=== PATIENT | female | born 2000 | race Caucasian/White ===

== ENCOUNTER 2019-05-10 04:30 | Inpatient (IN) | payer BC ==
[~2019-05-10] VITALS: Ht 152.4 cm; Wt 95.2 kg
--- NOTE | 2019-05-10 04:52 | NUR ---
PT AMBULATES TO ROOM FROM TRIAGE WITH STEADY GAIT. PT INSTRUCTED TO CHANGE INTO GOWN AND PROVIDED WITH UA CUP. AWAITING ERP AT THIS TIME.
[2019-05-10] MEDS ORDERED: ACETAMINOPHEN 500 MG TABLET ONE (05:11)
[2019-05-10] MEDS ORDERED: ONDANSETRON 2MG/ML, 2ML ONE (05:16)
[2019-05-10] MEDS ORDERED: MORPHINE SULFATE 4 MG/ML, 1ML ONE ×2 (05:16→07:30)
[2019-05-10] MEDS ORDERED: SODIUM CHLORIDE FLUSH 10ML SYR IVF ONE (05:30)
[2019-05-10] MEDS ORDERED: ACETAMINOPHEN 500 MG TABLET PO ONE (05:30)
[2019-05-10] MEDS ORDERED: ONDANSETRON 2MG/ML, 2ML IVPush ONE (05:30)
[2019-05-10 05:43] LABS: HCG UR SG 1.033 (1.003-1.030)
--- NOTE | 2019-05-10 05:44 | NUR ---
PT BLOOD COLLECTED AND TUBED TO LAB. IV ACCESS ESTABLISHED AND PT MEDICATED AT THIS TIME PER MAR. PT HAS CALL LIGHT WITHIN REACH.
[2019-05-10] MEDS: MORPHINE SULFATE 4 MG/ML, 1ML IVPush PRN ×2 (05:46→07:34)
[2019-05-10 05:49] LABS: CULTURE INDICATED? YES; MICROSCOPIC INDICATED
[2019-05-10 06:09] LABS: MEAN CORPUSCULAR HEMOGLOBIN 31.6 pg (27.0-34.8); MEAN CORPUSCULAR HGB CONC 33.7 g/dL (32.4-35.8); MEAN PLATELET VOLUME 8.9 fL (7.4-10.4); PLATELET COUNT 373 x10^3/uL (130-400); RED BLOOD COUNT 4.42 x10^6/uL (3.82-5.3); RED CELL DISTRIBUTION WIDTH 12.8 % (9.6-15.2)
[2019-05-10 06:10] LABS: ALANINE AMINOTRANSFERASE 40 U/L (12-78); ALBUMIN 3.9 g/dL (3.4-5.0); ANION GAP 6 mmol/L (5-15); CALCIUM 9.1 mg/dL (8.5-10.1); CHLORIDE 106 mmol/L (98-107); CREATININE 0.84 mg/dL (0.55-1.02)
[2019-05-10 06:13] LABS: ALKALINE PHOSPHATASE 90 U/L (45-117); BILIRUBIN,TOTAL 1.2 mg/dL (0.2-1.0); TOTAL PROTEIN 8.2 g/dL (6.4-8.2)
--- NOTE | 2019-05-10 06:27 | NUR ---
PT TO CT VIA [facility] AT THIS TIME.
[2019-05-10 06:28] LABS: RAPID INFLUENZA A Negative (Negative); RAPID INFLUENZA B Negative (Negative)
[2019-05-10] MEDS ORDERED: SODIUM CHLORIDE 0.9% 1,000ML IVBOLUS ONE (06:30)
[2019-05-10] MEDS ORDERED: OMNIPAQUE 350 MG/ML, 100ML BOTTLE ONE (06:33)
--- NOTE | 2019-05-10 06:48 | NUR ---
Received report from ALVERTO Castano. All questions answered. Assuming care of pt at this time.
[2019-05-10 07:01] LABS: BASOPHILS # (AUTO) 0.01 x10^3/uL (0-0.3); BASOPHILS % (AUTO) 0 % (0-1); EOSINOPHILS % (AUTO) 0 % (1-7); LYMPHOCYTES % (AUTO) 4 % (22-44); MD SCAN; MONOCYTES # (AUTO) 0.68 x10^3/uL (0-1.4); MONOCYTES % (AUTO) 3 % (2-9); NEUTROPHILS # (AUTO) 22.51 x10^3/uL (1.8-8.0); NEUTROPHILS % (AUTO) 93 % (42-75)
--- NOTE | 2019-05-10 07:04 | NUR ---
Pt resting on gurney connected to pulse ox monitor. Lab at bedside. Pt denies pain at this time. PIV fluids infuising per EMAR. Pt has call light within reach and bedrail up x 1. NADN. No needs expressed at this time.
--- NOTE | 2019-05-10 07:42 | NUR ---
Pt transported on gurney to ultrasound.
[2019-05-10] MEDS ORDERED: KETOROLAC 30 MG/1 ML IVPush ONE (08:00)
--- NOTE | 2019-05-10 08:41 | NUR ---
Pt remains away from ED room on [facility] at .
--- NOTE | 2019-05-10 09:10 | NUR ---
, Pt's mom, called and left contact number in case of emergency.
[2019-05-10] MEDS ORDERED: CEFTRIAXONE PMX 1GM/50ML 50 ML ONE (09:28)
[2019-05-10] MEDS ORDERED: CEFTRIAXONE PMX 1GM/50ML 50 ML IV ONE (09:30)
--- NOTE | 2019-05-10 09:38 | NUR ---
Provided medications per EMAR. NADN. No needs expressed at this time. Pt resting on gurney connected to NIBP cuff and continous pulse ox monitor. Call light within reach.
[2019-05-10] MEDS ORDERED: hydrALAzine 20 MG/ML, 1ML IVPush PRN (10:30)
[2019-05-10] MEDS ORDERED: ONDANSETRON 2MG/ML, 2ML IVPush PRN (10:30)
[2019-05-10] MEDS ORDERED: TRAZODONE 50MG TABLET PO PRN (10:30)
[2019-05-10] MEDS ORDERED: IBUPROFEN 600 MG TABLET PO PRN (10:30)
[2019-05-10] MEDS ORDERED: ONDANSETRON ODT 4 MG PO PRN (10:30)
[2019-05-10] MEDS ORDERED: ASA/APAP/ CAFFEINE TABLET PO PRN (10:30)
[2019-05-10] MEDS ORDERED: POLYETHYLENE GLYCOL 17 GM PACKET PO PRN (10:30)
--- NOTE | 2019-05-10 10:34 | NUR ---
Provided report to ALVERTO RAMIREZ. All questions answered. Pt ready to transfer to floor from ED. NADN. No other needs expressed.
[2019-05-10 11:20] VITALS: BP 130/78
[2019-05-10] MEDS: POTASSIUM CHLORIDE 20 MEQ in LACTATED RINGERS 1,000 ML IV SCH (11:48)
[2019-05-10] MEDS: KETOROLAC 30 MG/1 ML IV PRN ×2 (11:49→17:52)
[2019-05-10] MEDS: GUAIFENESIN/DM 200-20MG, 10ML UDC PO PRN ×2 (11:54→17:58)
[2019-05-10] MEDS: ACETAMINOPHEN 325 MG TABLET PO PRN ×2 (11:54→17:58)
[2019-05-10 12:00] VITALS: BP 130/78
[2019-05-10] MEDS: PIPERACILLIN/TAZO/PMX 3.375GM 50 ML IV SCH ×3 (12:24→23:38)
[2019-05-10 12:36] VITALS: BP 104/64
[2019-05-10] MEDS ORDERED: MAGNESIUM SULFATE PMX 2GM/50ML 50 ML IV ONE (14:00)
[2019-05-10] MEDS: ASCORBIC ACID 500 MG TABLET PO SCH (16:44)
[2019-05-10] MEDS: CHOLECALCIFEROL 400 UNITS/ML ORAL SOL PO SCH (16:45)
[2019-05-10 18:43] VITALS: BP 119/73
[2019-05-11] MEDS: GUAIFENESIN/DM 200-20MG, 10ML UDC PO PRN ×2 (00:33→07:50)
[2019-05-11] MEDS: KETOROLAC 30 MG/1 ML IV PRN ×3 (00:33→18:07)
[2019-05-11] MEDS: ACETAMINOPHEN 325 MG TABLET PO PRN ×2 (00:34→12:43)
[2019-05-11 01:32] VITALS: BP 122/78
[2019-05-11] MEDS: POTASSIUM CHLORIDE 20 MEQ in LACTATED RINGERS 1,000 ML IV SCH (02:20)
[2019-05-11] MEDS: PIPERACILLIN/TAZO/PMX 3.375GM 50 ML IV SCH (05:55)
[2019-05-11 06:07] LABS: MEAN CORPUSCULAR HEMOGLOBIN 31.8 pg (27.0-34.8); MEAN CORPUSCULAR HGB CONC 33.3 g/dL (32.4-35.8); MEAN CORPUSCULAR VOLUME 95.3 fL (80-100); MEAN PLATELET VOLUME 8.4 fL (7.4-10.4); PLATELET COUNT 324 x10^3/uL (130-400); RED CELL DISTRIBUTION WIDTH 12.9 % (9.6-15.2)
[2019-05-11 06:22] LABS: ANION GAP 5 mmol/L (5-15); CALCIUM 8.9 mg/dL (8.5-10.1); CHLORIDE 108 mmol/L (98-107)
[2019-05-11 06:24] LABS: CREATININE 0.77 mg/dL (0.55-1.02)
[2019-05-11 06:52] LABS: MD YES
[2019-05-11 06:57] LABS: <PLATELET ESTIMATE> ADEQUATE; <PLT MORPHOLOGY> NORMAL PLT MORPH; <RBC MORPHOLOGY> NORMAL; BAND#(MANUAL) 0.83 x10^3/uL; BANDS%(MANUAL) 4 % (0-7); LYMPH#(MANUAL) 2.07 x10^3/uL (1-6.1); LYMPHS% (MANUAL) 10 % (22-44); MONOS#(MANUAL) 1.04 x10^3/uL (0.3-2.7); MONOS% (MANUAL) 5 % (2-9); SEG#(MANUAL) 16.77 x10^3/uL (1.8-8); SEGS% (MANUAL) 81 % (42-75)
[2019-05-11 07:05] LABS: BASOPHILS # (AUTO) 0.04 x10^3/uL (0-0.3); BASOPHILS % (AUTO) 0 % (0-1); EOSINOPHILS # (AUTO) 0.01 x10^3/uL (0-0.8); EOSINOPHILS % (AUTO) 0 % (1-7); LYMPHOCYTES # (AUTO) 1.49 x10^3/uL (1-6.1); LYMPHOCYTES % (AUTO) 7 % (22-44); MONOCYTES # (AUTO) 1.08 x10^3/uL (0-1.4); MONOCYTES % (AUTO) 5 % (2-9); NEUTROPHILS # (AUTO) 18.12 x10^3/uL (1.8-8.0); NEUTROPHILS % (AUTO) 87 % (42-75)
[2019-05-11 07:39] VITALS: BP 114/77
[2019-05-11] MEDS: ASCORBIC ACID 500 MG TABLET PO SCH ×2 (07:50→11:30)
[2019-05-11] MEDS: MULTIVITS,STRESS FORMULA 1 TABLET PO SCH (07:50)
[2019-05-11] MEDS: ENOXAPARIN 40 MG/0.4 ML SQ SCH (10:00)
[2019-05-11] MEDS: CEFTRIAXONE PMX 2GM/50ML 50 ML IV SCH (10:02)
[2019-05-11 12:34] VITALS: BP 121/77
[2019-05-11] MEDS: CHOLECALCIFEROL 400 UNITS/ML ORAL SOL PO SCH (16:30)
[2019-05-11 18:50] VITALS: BP 114/80
[2019-05-12] MEDS: KETOROLAC 30 MG/1 ML IV PRN (01:02)
[2019-05-12 01:08] VITALS: BP 113/77
[2019-05-12 05:37] LABS: BASOPHILS # (AUTO) 0.08 x10^3/uL (0-0.3); BASOPHILS % (AUTO) 1 % (0-1); EOSINOPHILS # (AUTO) 0.08 x10^3/uL (0-0.8); EOSINOPHILS % (AUTO) 1 % (1-7); LYMPHOCYTES # (AUTO) 2.14 x10^3/uL (1-6.1); LYMPHOCYTES % (AUTO) 14 % (22-44); MD NO; MEAN CORPUSCULAR HEMOGLOBIN 31.7 pg (27.0-34.8); MEAN CORPUSCULAR HGB CONC 33.1 g/dL (32.4-35.8); MEAN CORPUSCULAR VOLUME 95.7 fL (80-100); MEAN PLATELET VOLUME 8.6 fL (7.4-10.4); MONOCYTES # (AUTO) 1.33 x10^3/uL (0-1.4); MONOCYTES % (AUTO) 9 % (2-9); NEUTROPHILS % (AUTO) 76 % (42-75); PLATELET COUNT 324 x10^3/uL (130-400); RED CELL DISTRIBUTION WIDTH 12.7 % (9.6-15.2)
[2019-05-12 05:46] LABS: CHLORIDE 110 mmol/L (98-107)
[2019-05-12 05:52] LABS: ALANINE AMINOTRANSFERASE 28 U/L (12-78); ALBUMIN 3.1 g/dL (3.4-5.0); ALKALINE PHOSPHATASE 83 U/L (45-117); ANION GAP 6 mmol/L (5-15); BILIRUBIN,TOTAL 0.4 mg/dL (0.2-1.0); CALCIUM 8.9 mg/dL (8.5-10.1); CREATININE 0.53 mg/dL (0.55-1.02); TOTAL PROTEIN 7.3 g/dL (6.4-8.2)
[2019-05-12 06:16] VITALS: BP 114/77
[2019-05-12] MEDS: ENOXAPARIN 40 MG/0.4 ML SQ SCH (09:14)
[2019-05-12] MEDS: MULTIVITS,STRESS FORMULA 1 TABLET PO SCH (09:14)
[2019-05-12] MEDS: ASCORBIC ACID 500 MG TABLET PO SCH (09:21)
[2019-05-12] MEDS: CEFTRIAXONE PMX 2GM/50ML 50 ML IV SCH (11:02)
[2019-05-12 13:14] VITALS: BP 117/79
[2019-05-12] MEDS ORDERED: DEXAMETHASONE 4 MG/ML, 1ML ONE ×2 (13:22→13:41)
[2019-05-12] MEDS: DEXAMETHASONE 4 MG/ML, 1ML IVPush SCH (13:28)
[2019-05-12] MEDS ORDERED: DEXAMETHASONE 4 MG/ML, 5ML IVPush ONE (13:30)
[2019-05-12] MEDS: D5%-LACTATED RINGERS 1,000 ML IV SCH ×2 (13:30→17:54)
[2019-05-12] MEDS ORDERED: OMNIPAQUE 350 MG/ML, 100ML BOTTLE ONE (14:26)
[2019-05-12] MEDS: PIPERACILLIN/TAZO/PMX 3.375GM 50 ML IV SCH ×2 (16:43→21:21)
[2019-05-12] MEDS: CHOLECALCIFEROL 400 UNITS/ML ORAL SOL PO SCH (16:43)
[2019-05-12 18:35] VITALS: BP 128/83
[2019-05-13] MEDS: DEXAMETHASONE 4 MG/ML, 1ML IVPush SCH ×3 (00:58→12:09)
[2019-05-13 02:27] VITALS: BP 114/74
[2019-05-13] MEDS: PIPERACILLIN/TAZO/PMX 3.375GM 50 ML IV SCH ×2 (03:20→09:38)
[2019-05-13 06:29] LABS: BASOPHILS # (AUTO) 0.01 x10^3/uL (0-0.3); BASOPHILS % (AUTO) 0 % (0-1); EOSINOPHILS # (AUTO) 0.01 x10^3/uL (0-0.8); EOSINOPHILS % (AUTO) 0 % (1-7); LYMPHOCYTES # (AUTO) 1.11 x10^3/uL (1-6.1); LYMPHOCYTES % (AUTO) 10 % (22-44); MD NO; MEAN CORPUSCULAR HEMOGLOBIN 31.6 pg (27.0-34.8); MEAN CORPUSCULAR VOLUME 95.6 fL (80-100); MEAN PLATELET VOLUME 8.5 fL (7.4-10.4); MONOCYTES # (AUTO) 0.19 x10^3/uL (0-1.4); MONOCYTES % (AUTO) 2 % (2-9); NEUTROPHILS # (AUTO) 9.58 x10^3/uL (1.8-8.0); NEUTROPHILS % (AUTO) 88 % (42-75); PLATELET COUNT 420 x10^3/uL (130-400); RED BLOOD COUNT 4.42 x10^6/uL (3.82-5.3); RED CELL DISTRIBUTION WIDTH 12.5 % (9.6-15.2)
[2019-05-13 06:41] LABS: ALANINE AMINOTRANSFERASE 33 U/L (12-78); ALBUMIN 3.3 g/dL (3.4-5.0); ANION GAP 10 mmol/L (5-15); CALCIUM 9.9 mg/dL (8.5-10.1); CHLORIDE 110 mmol/L (98-107); CREATININE 0.63 mg/dL (0.55-1.02)
[2019-05-13 06:44] LABS: ALKALINE PHOSPHATASE 95 U/L (45-117); BILIRUBIN,TOTAL 0.5 mg/dL (0.2-1.0); TOTAL PROTEIN 8.3 g/dL (6.4-8.2)
[2019-05-13 08:00] VITALS: BP 120/72
[2019-05-13] MEDS: ASCORBIC ACID 500 MG TABLET PO SCH (09:38)
[2019-05-13] MEDS: MULTIVITS,STRESS FORMULA 1 TABLET PO SCH (09:47)
[2019-05-13] MEDS ORDERED: ERTAPENEM 1 GM in SODIUM CHLORIDE 0.9% 50 ML IV SCH (11:00)
[2019-05-13] MEDS ORDERED: CHOL400D16 PO (11:29)
[2019-05-13] MEDS ORDERED: DEXA4TAB66 PO (11:29)
[2019-05-13] MEDS ORDERED: ASCO500T6 PO (11:29)
[2019-05-13] MEDS ORDERED: AMOX1TAB64 PO (11:29)
[2019-05-13] MEDS: D5%-LACTATED RINGERS 1,000 ML IV SCH (12:00)
== END 2019-05-13 12:42 | disposition home or self-care (01) | DRG 872 ==
LOC: ED 10:05 → EDIP 10:10 → 3N 11:01
PROVIDERS: ADMIT Family Medicine; ATTEND Hospitalist
DX: A41.9 Sepsis, unspecified organism (principal); N10 Acute pyelonephritis; J36 Peritonsillar abscess; E86.0 Dehydration; E80.6 Other disorders of bilirubin metabolism; E83.42 Hypomagnesemia
CPT/HCPCS: 36415; 87400; 96374; 96375; 99285; J7121; 70491; 71046; 74177; 76830; 80048; 80053; 81001; 81025; 83605; 83690; 83735; 84100; 85025; 86803; 87040; 87081; 87086; 87389; 87491; 87591; 87880; G0378; J0696; J1100; J1335; J1885; J2405; J2543; J3480; Q9967; J2270; J3475; J7030; J7120

== ENCOUNTER 2019-05-30 13:43 | Emergency (ER) | payer BC ==
[~2019-05-30] VITALS: Ht 152.4 cm; Wt 95.3 kg
[~2019-05-30 13:43] MED LIST: AMOX1TAB64 PO; ASCO500T6 PO; CHOL400D16 PO; DEXA4TAB66 PO
[2019-05-30 13:45] VITALS: BP 135/78
[2019-05-30 14:23] LABS: BASOPHILS # (AUTO) 0.02 x10^3/uL (0-0.3); BASOPHILS % (AUTO) 0 % (0-1); EOSINOPHILS # (AUTO) 0.11 x10^3/uL (0-0.8); EOSINOPHILS % (AUTO) 1 % (1-7); LYMPHOCYTES # (AUTO) 1.95 x10^3/uL (1-6.1); LYMPHOCYTES % (AUTO) 17 % (22-44); MD NO; MEAN CORPUSCULAR HEMOGLOBIN 32.1 pg (27.0-34.8); MEAN CORPUSCULAR HGB CONC 33.2 g/dL (32.4-35.8); MEAN CORPUSCULAR VOLUME 96.9 fL (80-100); MEAN PLATELET VOLUME 8.8 fL (7.4-10.4); MONOCYTES # (AUTO) 0.42 x10^3/uL (0-1.4); MONOCYTES % (AUTO) 4 % (2-9); NEUTROPHILS % (AUTO) 79 % (42-75); PLATELET COUNT 468 x10^3/uL (130-400); RED BLOOD COUNT 4.34 x10^6/uL (3.82-5.3); RED CELL DISTRIBUTION WIDTH 13.9 % (9.6-15.2)
[2019-05-30 14:31] LABS: ALANINE AMINOTRANSFERASE 51 U/L (12-78); ALBUMIN 3.7 g/dL (3.4-5.0); ANION GAP 8 mmol/L (5-15); CALCIUM 9.1 mg/dL (8.5-10.1); CHLORIDE 111 mmol/L (98-107); CREATININE 0.67 mg/dL (0.55-1.02)
[2019-05-30 14:35] LABS: ALKALINE PHOSPHATASE 91 U/L (45-117); BILIRUBIN,TOTAL 0.6 mg/dL (0.2-1.0); TOTAL PROTEIN 7.7 g/dL (6.4-8.2)
[2019-05-30 14:43] LABS: MICROSCOPIC NOT IND
[2019-05-30 14:52] LABS: CLUE CELLS NONE SEEN (NONE SEEN); WET PREP WBCS FEW (FEW)
[2019-05-30 15:00] LABS: CULTURE INDICATED? NO
== END 2019-05-30 16:07 | disposition home or self-care (01) ==
LOC: ED 14:12
DX: R10.2 Pelvic and perineal pain (principal)
CPT/HCPCS: 36415; 74018; 76830; 80053; 81003; 84703; 85025; 87210; 87491; 87591; 87808; 99284

== ENCOUNTER 2020-02-19 10:34 | Emergency (ER) | payer BC ==
[~2020-02-19] VITALS: Ht 152.4 cm; Wt 98.0 kg
[~2020-02-19 10:34] MED LIST changes: -ASCO500T6 PO; +ASCO500T9 PO; -CHOL400D16 PO; +CHOL400D6 PO
[2020-02-19] MEDS ORDERED: SODIUM CHLORIDE FLUSH 10ML SYR IVF ONE (11:00)
[2020-02-19] MEDS ORDERED: SODIUM CHLORIDE 0.9% 1,000ML IVBOLUS ONE (11:00)
[2020-02-19] MEDS ORDERED: IBUPROFEN 200 MG TABLET ONE (11:05)
[2020-02-19] MEDS ORDERED: IBUPROFEN 200 MG TABLET PO ONE (11:30)
[2020-02-19 11:50] LABS: HCT (SEDRATE) 43.9 % (34.6-47.8)
[2020-02-19 11:53] LABS: BASOPHILS # (AUTO) 0.04 x10^3/uL (0-0.1); BASOPHILS % (AUTO) 1 % (0-1); EOSINOPHILS # (AUTO) 0.04 x10^3/uL (0-0.4); EOSINOPHILS % (AUTO) 0 % (1-7); LYMPHOCYTES # (AUTO) 1.65 x10^3/uL (1-3.4); LYMPHOCYTES % (AUTO) 20 % (22-44); MD NO; MEAN CORPUSCULAR HEMOGLOBIN 31.1 pg (27.0-34.8); MEAN CORPUSCULAR HGB CONC 33.5 g/dL (32.4-35.8); MEAN CORPUSCULAR VOLUME 92.8 fL (80-100); MEAN PLATELET VOLUME 8.4 fL (7.4-10.4); MONOCYTES # (AUTO) 0.91 x10^3/uL (0.2-0.8); MONOCYTES % (AUTO) 11 % (2-9); NEUTROPHILS # (AUTO) 5.52 x10^3/uL (1.8-6.8); NEUTROPHILS % (AUTO) 68 % (42-75); PLATELET COUNT 292 x10^3/uL (130-400); RED CELL DISTRIBUTION WIDTH 12.2 % (9.6-15.2)
[2020-02-19 12:02] LABS: ALBUMIN 3.7 g/dL (3.4-5.0); ANION GAP 6 mmol/L (5-15); CALCIUM 9.3 mg/dL (8.5-10.1); CHLORIDE 107 mmol/L (98-107)
[2020-02-19 12:07] LABS: ALANINE AMINOTRANSFERASE 80 U/L (12-78); ALKALINE PHOSPHATASE 118 U/L (45-117); BILIRUBIN,TOTAL 0.4 mg/dL (0.2-1.0); CREATININE 0.87 mg/dL (0.55-1.02); TOTAL PROTEIN 7.8 g/dL (6.4-8.2)
[2020-02-19 12:47] LABS: MICROSCOPIC INDICATED
[2020-02-19 13:40] VITALS: BP 114/58
== END 2020-02-19 13:43 | disposition home or self-care (01) ==
LOC: ED 11:49
DX: B27.90 Infectious mononucleosis, unspecified without complication (principal); J02.9 Acute pharyngitis, unspecified; R53.83 Other fatigue; R53.1 Weakness
CPT/HCPCS: 36415; 71045; 80053; 81001; 83605; 84703; 85025; 85651; 86308; 87040; 87086; 96360; 99284; J7030

== ENCOUNTER 2020-08-28 02:14 | Emergency (ER) | payer BC ==
[~2020-08-28] VITALS: Ht 152.4 cm; Wt 101.0 kg
[2020-08-28] MEDS ORDERED: SODIUM CHLORIDE FLUSH 10ML SYR IVF ONE (02:30)
[2020-08-28 03:07] LABS: MICROSCOPIC NOT IND
[2020-08-28 03:30] LABS: ALANINE AMINOTRANSFERASE 57 U/L (12-78); ALBUMIN 3.9 g/dL (3.4-5.0); ANION GAP 8 mmol/L (5-15); CALCIUM 8.5 mg/dL (8.5-10.1); CHLORIDE 108 mmol/L (98-107)
[2020-08-28] MEDS ORDERED: ONDANSETRON 2MG/ML, 2ML IVPush ONE (03:30)
[2020-08-28] MEDS ORDERED: MORPHINE SULFATE 4 MG/ML, 1ML IVPush PRN (03:30)
[2020-08-28 03:34] LABS: ALKALINE PHOSPHATASE 95 U/L (45-117); BILIRUBIN,TOTAL 0.3 mg/dL (0.2-1.0); TOTAL PROTEIN 7.8 g/dL (6.4-8.2)
[2020-08-28] MEDS ORDERED: ONDANSETRON ODT 4 MG ONE (03:53)
[2020-08-28] MEDS ORDERED: HYDROmorphone 1 MG/ML, 1ML INJ ONE (03:53)
[2020-08-28] MEDS ORDERED: ONDANSETRON ODT 4 MG PO ONE (04:00)
[2020-08-28] MEDS ORDERED: HYDROmorphone 1 MG/ML, 1ML INJ IM ONE (04:00)
[2020-08-28 04:01] LABS: BASOPHILS % (AUTO) 1 % (0-1); EOSINOPHILS % (AUTO) 2 % (1-7); LYMPHOCYTES % (AUTO) 25 % (22-44); MD NO; MEAN CORPUSCULAR HEMOGLOBIN 31.4 pg (27.0-34.8); MEAN CORPUSCULAR HGB CONC 34.2 g/dL (32.4-35.8); MONOCYTES % (AUTO) 6 % (2-9); NEUTROPHILS % (AUTO) 67 % (42-75); PLATELET COUNT 299 x10^3/uL (130-400); RED BLOOD COUNT 4.43 x10^6/uL (3.82-5.3); RED CELL DISTRIBUTION WIDTH 12.3 % (9.6-15.2)
[2020-08-28] MEDS ORDERED: MORPHINE SULFATE 4 MG/ML, 1ML ONE (04:10)
[2020-08-28] MEDS ORDERED: ONDANSETRON 2MG/ML, 2ML ONE (04:30)
[2020-08-28 06:12] VITALS: BP 121/77
[2020-08-28] MEDS ORDERED: OMNIPAQUE 350 MG/ML, 100ML BOTTLE ONE (06:33)
== END 2020-08-28 06:14 | disposition home or self-care (01) ==
LOC: ED 03:41
DX: R10.31 Right lower quadrant pain (principal); R10.11 Right upper quadrant pain; R11.2 Nausea with vomiting, unspecified; R19.7 Diarrhea, unspecified
CPT/HCPCS: 36415; 74177; 80053; 81003; 83690; 84703; 85025; 96372; 96374; 96375; 99285; J1170; J2270; J2405; Q0162; Q9967

== ENCOUNTER 2020-11-05 18:42 | Emergency (ER) | payer BC ==
[~2020-11-05] VITALS: Ht 152.4 cm; Wt 100.0 kg
--- NOTE | 2020-11-05 19:03 | NUR ---
CC OF VOMITING SINCE 1-2 PM AFTER EATING SUSHI. STARTED VOMITING BLOOD ABOUT 30 MIN AGO, AND ABD PAIN IN BOTTOM MIDDLE OF ABD 12/23. PT STATES SHE HAS "A LOT OF FOOD ALLERGIES".
[2020-11-05] MEDS ORDERED: DICYCLOMINE 10 MG CAPSULE PO ONE (19:30)
[2020-11-05] MEDS ORDERED: SODIUM CHLORIDE 0.9% 1,000ML IVBOLUS ONE ×2 (19:30→21:30)
[2020-11-05] MEDS ORDERED: ONDANSETRON 2MG/ML, 2ML IVPush ONE ×2 (19:30→21:30)
[2020-11-05] MEDS ORDERED: SODIUM CHLORIDE FLUSH 10ML SYR IVF ONE ×2 (19:30→21:30)
[2020-11-05] MEDS ORDERED: DICYCLOMINE 20 MG TABLET ONE (19:39)
[2020-11-05] MEDS ORDERED: ONDANSETRON ODT 4 MG ONE (19:40)
[2020-11-05] MEDS ORDERED: ONDANSETRON ODT 4 MG PO ONE (20:00)
[2020-11-05] MEDS ORDERED: DICYCLOMINE 20 MG TABLET PO ONE (20:00)
[2020-11-05 20:17] LABS: BASOPHILS % (AUTO) 0 % (0-1); EOSINOPHILS % (AUTO) 1 % (1-7); LYMPHOCYTES % (AUTO) 8 % (22-44); MEAN CORPUSCULAR HEMOGLOBIN 31.5 pg (27.0-34.8); MEAN CORPUSCULAR HGB CONC 34.1 g/dL (32.4-35.8); MEAN PLATELET VOLUME 8.8 fL (7.4-10.4); MONOCYTES % (AUTO) 5 % (2-9); NEUTROPHILS % (AUTO) 86 % (42-75); PLATELET COUNT 351 x10^3/uL (130-400); RED BLOOD COUNT 4.55 x10^6/uL (3.82-5.3); RED CELL DISTRIBUTION WIDTH 12.7 % (9.6-15.2)
[2020-11-05 20:18] LABS: MD NO
--- NOTE | 2020-11-05 20:28 | NUR ---
LATE ENTRY DUE TO PT CARE. PT HARD IV STICK, JOHN MCKOY HOLD ON IV FLUIDS AND START WITH PO MEDICATIONS.
[2020-11-05 20:29] LABS: ALBUMIN 3.8 g/dL (3.4-5.0); ANION GAP 8 mmol/L (5-15); CALCIUM 8.6 mg/dL (8.5-10.1); CHLORIDE 110 mmol/L (98-107); CREATININE 0.53 mg/dL (0.55-1.02)
[2020-11-05 20:36] LABS: MICROSCOPIC INDICATED
[2020-11-05] MEDS ORDERED: MORPHINE SULFATE 4 MG/ML, 1ML ONE (21:05)
[2020-11-05] MEDS ORDERED: ONDANSETRON 2MG/ML, 2ML ONE (21:05)
[2020-11-05] MEDS ORDERED: OMNIPAQUE 350 MG/ML, 100ML BOTTLE ONE (21:09)
[2020-11-05] MEDS ORDERED: MORPHINE SULFATE 4 MG/ML, 1ML IVPush ONE (21:30)
--- NOTE | 2020-11-05 21:31 | NUR ---
pt ambulatory to restroom, states "my stomach still feels bloated, I could take maternity photos right now". roommate now at bedside.
[2020-11-05 22:01] VITALS: BP 122/73
== END 2020-11-05 22:23 | disposition home or self-care (01) ==
LOC: ED 20:03
DX: K52.9 Noninfective gastroenteritis and colitis, unspecified (principal); R11.2 Nausea with vomiting, unspecified; R10.31 Right lower quadrant pain; R10.32 Left lower quadrant pain
CPT/HCPCS: 36415; 74177; 80048; 81001; 82040; 84703; 85025; 87086; 96361; 96374; 96375; 99285; J2270; J2405; J7030; Q0162; Q9967

== ENCOUNTER 2021-01-19 16:53 | Emergency (ER) | payer BC ==
[~2021-01-19] VITALS: Ht 152.4 cm; Wt 99.2 kg
[2021-01-19 17:01] VITALS: BP 131/81
--- NOTE | 2021-01-19 17:41 | NUR ---
Pt on phone, requested pt change to gown for exam.
--- NOTE | 2021-01-19 17:44 | NUR ---
Pt states she has been unable to get into a pcp or specialist for several weeks and is concerned because the pain is not getting better, says is getting worse.
[2021-01-19] MEDS ORDERED: KETOROLAC 30 MG/1 ML IM ONE (18:00)
[2021-01-19] MEDS ORDERED: KETOROLAC 30 MG/1 ML ONE (18:06)
--- NOTE | 2021-01-19 18:12 | NUR ---
Medicated per MAR, Labs drawn. Waiting for ultrasound. Pt on cont pulse ox and b/p. Call light, AIDET
[2021-01-19 18:14] LABS: BASOPHILS % (AUTO) 1 % (0-1); EOSINOPHILS % (AUTO) 4 % (1-7); LYMPHOCYTES % (AUTO) 29 % (22-44); MEAN CORPUSCULAR HEMOGLOBIN 31.7 pg (27.0-34.8); MEAN CORPUSCULAR HGB CONC 34.6 g/dL (32.4-35.8); MONOCYTES % (AUTO) 8 % (2-9); NEUTROPHILS % (AUTO) 59 % (42-75); PLATELET COUNT 401 x10^3/uL (130-400); RED BLOOD COUNT 4.72 x10^6/uL (3.82-5.3); RED CELL DISTRIBUTION WIDTH 12.6 % (9.6-15.2)
--- NOTE | 2021-01-19 18:32 | NUR ---
Pt to [facility] in [facility] with tech.
--- NOTE | 2021-01-19 18:41 | NUR ---
Report to Jeff RN
--- NOTE | 2021-01-19 19:12 | NUR ---
PT BACK FROM ULTRASOUND, WAITING ON RESULTS FOR MD TO SPEAK WITH HER.
--- NOTE | 2021-01-19 20:19 | NUR ---
F/U AND D/C INSTRUCTIONS WITH PRESCRIPTIONS GIVEN TO PT AND SHE V/U. PT IN NO ACUTE DISTRESS AT THIS TIME, AND AMBULATED TO DISCHARGE DESK.
== END 2021-01-19 20:21 | disposition home or self-care (01) ==
LOC: ED 17:48
DX: N83.01 Follicular cyst of right ovary (principal); M79.10 Myalgia, unspecified site; R10.31 Right lower quadrant pain
CPT/HCPCS: 36415; 76830; 84703; 85025; 96372; 99284; J1885